=== PATIENT | female | born 1985 | race Caucasian/White ===

== ENCOUNTER 2020-05-26 16:20 | Inpatient (IN) | payer MEDICAID ==
[2020-05-26] MEDS ORDERED: Butorphanol 1 MG/ML SDV IVPUSH PRN (17:24)
[2020-05-26] MEDS ORDERED: Terbutaline 1 MG/ML SDV SUBCUT PRN (17:24)
[2020-05-26] MEDS ORDERED: Sodium Chloride 0.9% 10 ML Syringe FLUSH PRN (17:24)
[2020-05-26] MEDS ORDERED: Ondansetron 4 MG/2 ML SDV IVPUSH PRN (17:24)
[2020-05-26] MEDS ORDERED: Methylergonovine 0.2 MG/1 ML Amp IM PRN (17:24)
[2020-05-26] MEDS ORDERED: Carboprost Tromethamine 250 MCG/1 ML Amp IM PRN (17:24)
[2020-05-26] MEDS ORDERED: Misoprostol 25 MCG (1/4 of 100 MCG) Tab VAG PRN ×2 (17:24)
[2020-05-26] MEDS ORDERED: Sodium Chloride 0.9% 10 ML SDV IV PRN (17:24)
[2020-05-26] MEDS ORDERED: Tranexamic Acid 1,000 MG in Sodium Chloride 0.9% 100 ML IV PRN (17:24)
[2020-05-26] MEDS ORDERED: Sodium Chloride 0.9% 2.5 ML Syringe FLUSH PRN (17:24)
[2020-05-26] MEDS ORDERED: Nalbuphine 10 MG/1 ML Vial IVPUSH PRN (17:24)
[2020-05-26] MEDS ORDERED: Water For Irrigation,Sterile 1,000 ML Container IRR PRN (17:24)
[2020-05-26] MEDS ORDERED: Lidocaine 1% 50 ML MDV INJECT PRN (17:24)
[2020-05-26] MEDS ORDERED: Misoprostol 200 MCG Tab PO PRN (17:24)
[2020-05-26] MEDS ORDERED: Oxytocin/0.9 % Sodium Chloride 30 UNIT/500 ML BAG IV SCH ×3 (17:30→18:45)
[2020-05-26] MEDS: Lactated Ringers 1,000 ML IV SCH ×3 (18:09→22:33)
[2020-05-26] MEDS ORDERED: Ropivacaine HCl/PF 100 ML ONE (22:24)
[2020-05-26] MEDS ORDERED: fentaNYL 100 MCG/2 ML SDV ONE (22:24)
--- NOTE | 2020-05-26 22:45 | PCM.PREANE ---
Preanesthetic Assessment - Anesthesia/Transfusion/Family Hx Anesthesia History: Prior Anesthesia Without Reaction Family History of Anesthesia Reaction: No Transfusion History: No Prior Transfusion(s) - Physical Assessment NPO Status Date: 05/26/20 NPO Status Time: 16:00 Height: 1.63 m Weight: 85.502 kg ASA Class: 2 - Lab Values: Laboratory Last Values WBC 13.67 K/uL (4.0-11.0) H 05/26/20 17:51 RBC 4.76 M/uL (4.30-5.90) 05/26/20 17:51 Hgb 14.3 g/dL (12.0-16.0) 05/26/20 17:51 Hct 42.6 % (36.0-46.0) 05/26/20 17:51 MCV 89.5 fL (80.0-98.0) 05/26/20 17:51 MCH 30.0 pg (27.0-32.0) 05/26/20 17:51 MCHC 33.6 g/dL (31.0-37.0) 05/26/20 17:51 RDW Std Deviation 44.2 fl (28.0-62.0) 05/26/20 17:51 RDW Coeff of Melany 14 % (11.0-15.0) 05/26/20 17:51 Plt Count 237 K/uL (150-400) 05/26/20 17:51 MPV 10.80 fL (7.40-12.00) 05/26/20 17:51 Nucleated RBC % 0.0 /100WBC 05/26/20 17:51 Nucleated RBCs # 0 K/uL 05/26/20 17:51 Membrane Rupture POSITIVE 05/26/20 20:57 Blood Type O POSITIVE 05/26/20 17:51 Antibody Screen NEGATIVE 05/26/20 17:51 - Allergies Allergies/Adverse Reactions: Allergies Allergy/AdvReac Type Severity Reaction Status Date / Time No Known Allergies Allergy Verified 05/25/20 16:23 - Acknowledgements Anesthesia Type Planned: Epidural Pt an Appropriate Candidate for the Planned Anesthesia: Yes Alternatives and Risks of Anesthesia Discussed w Pt/Guardian: Yes Pt/Guardian Understands and Agrees with Anesthesia Plan: Yes PreAnesthesia Questionnaire 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 [No Known Home Meds] 10/21/14 [History] - CURRENT (IN HOUSE) MEDS Current Meds: Current Medications Butorphanol Tartrate (Stadol) 1 mg IVPUSH Q1H PRN PRN Reason: Pain Carboprost Tromethamine (Hemabate Ds) 250 mcg IM ASDIRECTED PRN PRN Reason: Post Hemorrhage Oxytocin/Sodium Chloride (Oxytocin 30 Unit/500 Ml-Ns) 30 unit in 500 mls @ 999 mls/hr IV TITRATE KEVEN Tranexamic Acid 1,000 mg/ (Sodium Chloride) 110 mls @ 660 mls/hr IV ONETIME PRN PRN Reason: Bleeding Lactated Ringer's (Ringers, Lactated) 1,000 mls @ 150 mls/hr IV ASDIRECTED KEVEN Last Admin: 05/26/20 22:33 Dose: 999 mls/hr Documented by: Oxytocin/Sodium Chloride (Oxytocin 30 Unit/500 Ml-Ns) 30 unit in 500 mls @ 2 mls/hr IV TITRATE KEVEN; Protocol Lidocaine HCl (Xylocaine 1%) 50 ml INJECT ONETIME PRN PRN Reason: Laceration repair Methylergonovine Maleate (Methergine) 0.2 mg IM ASDIRECTED PRN PRN Reason: Post Hemorrhage Misoprostol (Cytotec) 200 mcg PO ONETIME PRN PRN Reason: Post Hemorrhage Misoprostol (Cytotec) 25 mcg VAG ONETIME PRN PRN Reason: Cervical Ripening Last Admin: 05/26/20 18:13 Dose: 25 mcg Documented by: Misoprostol (Cytotec) 25 mcg VAG Q4H PRN PRN Reason: Cervical Ripening Nalbuphine HCl (Nubain) 10 mg IVPUSH Q1H PRN PRN Reason: Pain (severe 7-10) Ondansetron HCl (Zofran) 4 mg IVPUSH Q6H PRN PRN Reason: Nausea/Vomiting Sodium Chloride (Saline Flush) 10 ml FLUSH ASDIRECTED PRN PRN Reason: Keep Vein Open Sodium Chloride (Saline Flush) 2.5 ml FLUSH ASDIRECTED PRN PRN Reason: Keep Vein Open Sodium Chloride (Normal Saline) 10 ml IV ASDIRECTED PRN PRN Reason: IV Use Sterile Water (Sterile Water For Irrigation) 1,000 ml IRR ASDIRECTED PRN PRN Reason: delivery Terbutaline Sulfate (Brethine) 0.25 mg SUBCUT ASDIRECTED PRN PRN Reason: Tacysystole Discontinued Medications Fentanyl (Sublimaze) Confirm Administered Dose 100 mcg .ROUTE .STK-MED ONE Stop: 05/26/20 22:25 Ropivacaine (Naropin 0.2%) Confirm Administered Dose 100 mls @ as directed .ROUTE .STK-MED ONE Stop: 05/26/20 22:25
--- NOTE | 2020-05-26 22:48 | PCM.PRNOTE ---
- Free Text/Narrative Note: Anes Note Patient requests epidural for L&D. Sitting position, level L3-L4 midline approach. sterile technique. Chloraprep scrub to lumbar area. Sterile fenestrated drape applied. Epidural space easily achieved single attempt with ease using MARSHALL technique. MARSHALL at 4 cm. Cath threaded 5 cm with ease. Cath secured at skin using sterile clear adhesive dressing. Test 2225 3 cc 1.5% lido with epi negative. 2229 Load 10 cc 0.2% ropivicaine with 1 mcg cc fentanyl in slow divided doses. 2233 Pump started with 90 cc same solution. Rate is 8 cc hr with 6 cc q 20 min prn bolus. Josafat well. Time with patient [id number] Doron Hoyos [employer] INSPECTOR
[2020-05-27] MEDS: Lactated Ringers 1,000 ML IV SCH ×4 (00:24→20:48)
[2020-05-27] MEDS ORDERED: ceFAZolin 2 GM in Premix Bag 1 BAG IV ONE (09:20)
[2020-05-27] MEDS ORDERED: Citric Acid/Sodium Citrate Solution 30 ML Cup PO ONE (09:20)
[2020-05-27] MEDS ORDERED: Lidocaine 2% with EPINEPHrine 1:200,000 20 ML SDV ONE (09:26)
[2020-05-27] MEDS ORDERED: fentaNYL 100 MCG/2 ML SDV ONE (09:27)
[2020-05-27] MEDS ORDERED: Ondansetron 4 MG/2 ML SDV ONE (09:35)
[2020-05-27] MEDS ORDERED: ceFAZolin 1 GM Vial ONE (09:35)
[2020-05-27] MEDS ORDERED: Phenylephrine 1% 10 MG/ML SDV ONE (09:35)
[2020-05-27] MEDS ORDERED: Sodium Chloride 0.9% 20 ML ONE (09:35)
[2020-05-27] MEDS ORDERED: Ketorolac 30 MG/ML SDV ONE (09:35)
[2020-05-27] MEDS ORDERED: Oxytocin 10 Units/1 ML SDV ONE (09:35)
[2020-05-27] MEDS ORDERED: Morphine PF 10 MG/10 ML SDV ONE (09:57)
[2020-05-27] MEDS ORDERED: Ondansetron 4 MG/2 ML SDV IVPUSH PRN ×2 (10:10→11:16)
[2020-05-27] MEDS ORDERED: Naloxone 0.4 MG/ML Syringe IVPUSH PRN (10:10)
[2020-05-27] MEDS ORDERED: Acetaminophen/oxyCODONE 325-5 MG Tab PO PRN ×2 (10:10→11:16)
[2020-05-27] MEDS ORDERED: Nalbuphine 10 MG/1 ML Vial IVPUSH PRN (10:10)
[2020-05-27] MEDS ORDERED: fentaNYL 100 MCG/2 ML SDV IVPUSH PRN (10:10)
[2020-05-27] MEDS ORDERED: diphenhydrAMINE 50 MG/ML SDV IVPUSH PRN ×2 (10:10→11:16)
[2020-05-27] MEDS ORDERED: Lanolin 100% Cream 7 GM Tube TOP PRN (11:16)
[2020-05-27] MEDS ORDERED: Measles, Mumps & Rubella Vaccine 0.5 ML SDV SUBCUT ONE (11:16)
[2020-05-27] MEDS ORDERED: Methylergonovine 0.2 MG/1 ML Amp IM PRN (11:16)
[2020-05-27] MEDS ORDERED: Tranexamic Acid 1,000 MG in Sodium Chloride 0.9% 100 ML IV PRN (11:16)
[2020-05-27] MEDS ORDERED: Misoprostol 200 MCG Tab RECTAL PRN (11:16)
[2020-05-27] MEDS ORDERED: Bisacodyl 10 MG Supp RECTAL PRN (11:16)
[2020-05-27] MEDS ORDERED: Oxytocin 10 Units/1 ML SDV IM PRN (11:16)
--- NOTE | 2020-05-27 11:28 | PCM.OPNOTE ---
- General Post-Op/Procedure Note Date of Surgery/Procedure: 05/27/20 Operative Procedure(s): Primary lower segment cesearean section Findings: Live male delivered at 1005am , weight 3210g 8/8 Uterus with small subserous fibroid Normal tubes and ovaries Pre Op Diagnosis: 34yo @ 40w0d with. Arrest of Descent. Maternal exhaustion Post-Op Diagnosis: same Anesthesia Technique: Epidural Primary Surgeon: Kaylah Boston Anesthesia Provider: Doron Hoyos Fluid Replacement, Intraop: 1,600 Output, Urine Amount: 50 EBL in mLs: 400 Complications: None Condition: Good Free Text/Narrative:: Intake & Output 05/26/20 05/27/20 05/27/20 22:59 06:59 14:59 Output Total 50 Balance -50
[2020-05-27] MEDS ORDERED: Ketorolac 30 MG/ML SDV IVPUSH SCH (11:30)
[2020-05-27] MEDS ORDERED: Oxytocin/Lactated Ringers 30 UNIT/500 ML BAG IV SCH (11:30)
--- NOTE | 2020-05-27 11:42 | PCM.POSTAN ---
POST ANESTHESIA ASSESSMENT - MENTAL STATUS Mental Status: Alert - RESPIRATORY Respiratory Status: Respiratory Rate WNL - CARDIOVASCULAR CV Status: Pulse Rate WNL - GASTROINTESTINAL GI Status: No Symptoms - POST OP HYDRATION Hydration Status: Adequate & Stable
[2020-05-27] MEDS ORDERED: Witch Hazel Medicated Pads 40/Jar TOP ONE (16:53)
[2020-05-27] MEDS: Ketorolac 30 MG/ML SDV IVPUSH SCH ×2 (16:58→22:49)
[2020-05-27] MEDS: Docusate Sodium 100 MG Cap PO SCH (20:51)
[2020-05-28] MEDS: Ketorolac 30 MG/ML SDV IVPUSH SCH ×2 (05:01→10:48)
--- NOTE | 2020-05-28 06:03 | PCM.PNPP ---
- General Info Date of Service: 05/28/20 Subjective Update: 34yo P1 s/p Primary POD1 , Rubella non - immune for MMR before discharge Ambulating [place] in - Normal hourly output Functional Status: Reports: Pain Controlled, Tolerating Diet, Ambulating, Urinating - Review of Systems General: Reports: No Symptoms HEENT: Reports: No Symptoms Pulmonary: Reports: No Symptoms Cardiovascular: Reports: No Symptoms Gastrointestinal: Reports: No Symptoms Genitourinary: Reports: No Symptoms Musculoskeletal: Reports: No Symptoms Skin: Reports: No Symptoms Neurological: Reports: No Symptoms Psychiatric: Reports: No Symptoms - General Info Date of Service: 05/28/20 - Patient Data Vital Signs - Most Recent: Last Vital Signs Temp 35.8 C L 05/27/20 20:00 Pulse 87 05/27/20 23:00 Resp 17 05/27/20 23:00 BP 106/51 L 05/27/20 20:00 Pulse Ox 97 05/27/20 23:00 Weight - Most Recent: 85.502 kg I&O - Last 24 Hours: Intake & Output 05/27/20 05/27/20 05/28/20 14:59 22:59 06:59 Intake Total 1600 Output Total 235 200 Balance 1365 -200 Lab Results - Last 24 Hours: Laboratory Results - last 24 hr 05/27/20 05/28/20 Range/Units 10:05 05:05 Hgb 10.4 L (12.0-16.0) g/dL Hct 31.0 L (36.0-46.0) % Cord VBG pH 7.240 L (7.25-7.45) Cord VBG Base Excess -8 (-10--2) Med Orders - Current: Current Medications Bisacodyl (Dulcolax) 10 mg RECTAL ONETIME PRN PRN Reason: Constipation Butorphanol Tartrate (Stadol) 1 mg IVPUSH Q1H PRN PRN Reason: Pain Carboprost Tromethamine (Hemabate Ds) 250 mcg IM ASDIRECTED PRN PRN Reason: Post Hemorrhage Diphenhydramine HCl (Benadryl) 25 mg IVPUSH Q4H PRN PRN Reason: Itching Stop: 05/28/20 10:10 Diphenhydramine HCl (Benadryl) 25 mg IVPUSH Q6H PRN PRN Reason: Itching or Nausea Docusate Sodium (Colace) 100 mg PO BID [facility] Last Admin: 05/27/20 20:51 Dose: 100 mg Documented by: Emollient Ointment (Lansinoh Hpa) 0 gm TOP ASDIRECTED PRN PRN Reason: Sore Nipples Fentanyl (Sublimaze) 50 mcg IVPUSH Q1H PRN PRN Reason: Pain (severe 7-10) Oxytocin/Sodium Chloride (Oxytocin 30 Unit/500 Ml-Ns) 30 unit in 500 mls @ 999 mls/hr IV TITRATE [facility] Tranexamic Acid 1,000 mg/ (Sodium Chloride) 110 mls @ 660 mls/hr IV ONETIME PRN PRN Reason: Bleeding Lactated Ringer's (Ringers, Lactated) 1,000 mls @ 150 mls/hr IV ASDIRECTED [facility] Last Admin: 05/27/20 07:01 Dose: 150 mls/hr Documented by: Oxytocin/Sodium Chloride (Oxytocin 30 Unit/500 Ml-Ns) 30 unit in 500 mls @ 2 mls/hr IV TITRATE [facility]; Protocol Last Infusion: 05/27/20 06:35 Dose: 7 munits/min, 7 mls/hr Documented by: Lactated Ringer's (Ringers, Lactated) 1,000 mls @ 125 mls/hr IV ASDIRECTED [facility] Last Admin: 05/27/20 20:48 Dose: 125 mls/hr Documented by: Oxytocin/Lactated Ringer's (Pitocin In Lr 30 Units/500 Ml) 30 unit in 500 mls @ 2 mls/hr IV TITRATE [facility]; Protocol Tranexamic Acid 1,000 mg/ (Sodium Chloride) 110 mls @ 660 mls/hr IV ONETIME PRN PRN Reason: Bleeding Ibuprofen (Motrin) 800 mg PO Q8H PRN PRN Reason: mild pain or fever Ketorolac Tromethamine (Toradol) 30 mg IVPUSH Q6H [facility] Stop: 05/28/20 10:46 Last Admin: 05/28/20 05:01 Dose: 30 mg Documented by: Lidocaine HCl (Xylocaine 1%) 50 ml INJECT ONETIME PRN PRN Reason: Laceration repair Methylergonovine Maleate (Methergine) 0.2 mg IM ASDIRECTED PRN PRN Reason: Post Hemorrhage Methylergonovine Maleate (Methergine) 0.2 mg IM ONETIME PRN PRN Reason: Excessive Vaginal Bleeding Misoprostol (Cytotec) 200 mcg PO ONETIME PRN PRN Reason: Post Hemorrhage Misoprostol (Cytotec) 1,000 mcg RECTAL ONETIME PRN PRN Reason: excessive bleeding Naloxone HCl (Narcan) 0.1 mg IVPUSH ONETIME PRN PRN Reason: Respiratory Depression Stop: 05/28/20 10:10 Ondansetron HCl (Zofran) 4 mg IVPUSH Q6H PRN PRN Reason: Nausea/Vomiting Ondansetron HCl (Zofran) 4 mg IVPUSH Q6H PRN PRN Reason: Nausea Ondansetron HCl (Zofran) 4 mg IVPUSH Q4H PRN PRN Reason: Nausea/Vomiting Oxycodone/Acetaminophen (Percocet 325-5 Mg) 2 tab PO Q6H PRN PRN Reason: Pain (moderate 4-6) Oxycodone/Acetaminophen (Percocet 325-5 Mg) 1 tab PO Q4H PRN PRN Reason: Pain (moderate 4-6) Oxycodone/Acetaminophen (Percocet 325-5 Mg) 2 tab PO Q4H PRN PRN Reason: Pain (moderate 4-6) Oxytocin (Pitocin) 10 unit IM ASDIRECTED PRN PRN Reason: Excessive Vaginal Bleeding Sodium Chloride (Saline Flush) 10 ml FLUSH ASDIRECTED PRN PRN Reason: Keep Vein Open Sodium Chloride (Saline Flush) 2.5 ml FLUSH ASDIRECTED PRN PRN Reason: Keep Vein Open Sodium Chloride (Normal Saline) 10 ml IV ASDIRECTED PRN PRN Reason: IV Use Sterile Water (Sterile Water For Irrigation) 1,000 ml IRR ASDIRECTED PRN PRN Reason: delivery Discontinued Medications Cefazolin Sodium (Ancef) Confirm Administered Dose 2 gm .ROUTE .STK-MED ONE Stop: 05/27/20 09:36 Citric Acid/Sodium Citrate (Bicitra Solution) 30 ml PO ONETIME ONE Stop: 05/27/20 09:21 Last Admin: 05/27/20 09:35 Dose: 15 ml Documented by: Fentanyl (Sublimaze) Confirm Administered Dose 100 mcg .ROUTE .STK-MED ONE Stop: 05/26/20 22:25 Last Admin: 05/27/20 22:14 Dose: Not Given Documented by: Fentanyl (Sublimaze) Confirm Administered Dose 100 mcg .ROUTE .STK-MED ONE Stop: 05/27/20 09:28 Ropivacaine (Naropin 0.2%) Confirm Administered Dose 100 mls @ as directed .ROUTE .STK-MED ONE Stop: 05/26/20 22:25 Last Admin: 05/27/20 22:14 Dose: Not Given Documented by: Cefazolin Sodium/Dextrose 2 gm (/ Premix) 50 mls @ 100 mls/hr IV ONETIME ONE Stop: 05/27/20 09:49 Sodium Chloride (Normal Saline) Confirm Administered Dose 20 mls @ as directed .ROUTE .STK-MED ONE Stop: 05/27/20 09:36 Ketorolac Tromethamine (Toradol) Confirm Administered Dose 30 mg .ROUTE .STK-MED ONE Stop: 05/27/20 09:36 Ketorolac Tromethamine (Toradol) 30 mg IVPUSH Q6H KEVEN Stop: 05/28/20 11:31 Lidocaine/Epinephrine (Xylocaine-Mpf 2%-Epi 1:200,000) Confirm Administered Dose 20 ml .ROUTE .STK-MED ONE Stop: 05/27/20 09:27 Last Admin: 05/27/20 22:14 Dose: Not Given Documented by: Measles/Mumps/Rubella Vaccine Live (M-M-R Ii Vaccine) 0.5 ml SUBCUT .ONCE ONE Stop: 05/27/20 11:17 Misoprostol (Cytotec) 25 mcg VAG ONETIME PRN PRN Reason: Cervical Ripening Last Admin: 05/26/20 18:13 Dose: 25 mcg Documented by: Misoprostol (Cytotec) 25 mcg VAG Q4H PRN PRN Reason: Cervical Ripening Morphine Sulfate (Duramorph Pf) Confirm Administered Dose 10 mg .ROUTE .STK-MED ONE Stop: 05/27/20 09:58 Nalbuphine HCl (Nubain) 10 mg IVPUSH Q1H PRN PRN Reason: Pain (severe 7-10) Nalbuphine HCl (Nubain) 5 mg IVPUSH ASDIRECTED PRN PRN Reason: Itching Ondansetron HCl (Zofran) Confirm Administered Dose 4 mg .ROUTE .STK-MED ONE Stop: 05/27/20 09:36 Oxytocin (Pitocin) Confirm Administered Dose 20 unit .ROUTE .STK-MED ONE Stop: 05/27/20 09:36 Phenylephrine HCl (Ravindra-Synephrine) Confirm Administered Dose 10 mg .ROUTE .STK- MED ONE Stop: 05/27/20 09:36 Terbutaline Sulfate (Brethine) 0.25 mg SUBCUT ASDIRECTED PRN PRN Reason: Tacysystole [place] (Tucks) Confirm Administered Dose 1 pad TOP .STK-MED ONE Stop: 05/27/20 16:54 Last Admin: 05/27/20 17:31 Dose: 1 pad Documented by: - Interaction Support Person: Significant Other - Recovery Exam Fundal Tone: Firm Fundal Level: 1 Fingerbreadths Below Umbilicus Fundal Placement: Midline Lochia Amount: Scant, Small Lochia Color: Rubra/Red Perineum Description: Intact, Minimal Bruising/Swelling Other Perinuem Description: Perineal area swollen due to pushing for 2 hours before C/S Episiotomy/Laceration: None Bladder Status: Indwelling Catheter in Place Urinary Elimination: Indwelling Catheter - Exam General: Alert HEENT: Pupils Equal Neck: Supple Lungs: Clear to Auscultation Cardiovascular: Regular Rate, Regular Rhythm GI/Abdominal Exam: Normal Bowel Sounds Extremities: Normal Inspection Wound/Incisions: Dressing Dry and Intact Neurological: No New Focal Deficit Psy/Mental Status: Alert - Problem List & Annotations (1) delivery delivered SNOMED Code(s): 520040236 Code(s): O82 - ENCOUNTER FOR DELIVERY WITHOUT INDICATION Status: Acute Current Visit: Yes - Problem List Review Problem List Initiated/Reviewed/Updated: Yes - My Orders Last 24 Hours: My Active Orders 05/27/20 11:16 Patient Status [ADT] Routine Ambulate [RC] PER UNIT ROUTINE Communication Order [RC] PER UNIT ROUTINE Communication Order [RC] PER UNIT ROUTINE Communication Order [RC] Per Unit Routine May Shower [RC] ASDIRECTED Notify Provider Intake and Out [RC] ASDIRECTED Notify Provider Vital Signs [RC] ASDIRECTED RT Incentive Spirometry [RC] Q2HWA Vital Signs [RC] PER UNIT ROUTINE Acetaminophen/oxyCODONE [Percocet 325-5 MG] 1 tab PO Q4H PRN Acetaminophen/oxyCODONE [Percocet 325-5 MG] 2 tab PO Q4H PRN Lanolin [Lansinoh HPA] See Dose Instructions TOP ASDIRECTED PRN Methylergonovine [Methergine] 0.2 mg IM ONETIME PRN Ondansetron [Zofran] 4 mg IVPUSH Q4H PRN Oxytocin [Pitocin] 10 unit IM ASDIRECTED PRN Tranexamic Acid [Cyklokapron] 1,000 mg Sodium Chloride 0.9% [Normal Saline] 100 ml IV ONETIME bisacodyL [Dulcolax] 10 mg RECTAL ONETIME PRN diphenhydrAMINE [Benadryl] 25 mg IVPUSH Q6H PRN miSOPROStoL [Cytotec] 1,000 mcg RECTAL ONETIME PRN Assess Lochia [WOMSER] Per Unit Routine Assess Uterine Involution [WOMSER] Per Unit Routine Breast Pump [WOMSER] Per Unit Routine Peripheral IV Discontinue [OM.PC] Routine Sequential Compression Device [OM.PC] Per Unit Routine Resuscitation Status Routine 05/27/20 11:17 Antiembolic Devices [RC] PER UNIT ROUTINE 05/27/20 11:30 Lactated Ringers [Ringers, Lactated] 1,000 ml IV ASDIRECTED Oxytocin/Lactated Ringers [Pitocin in LR 30 Units/500 ML] 30 unit in 500 ml IV TITRATE 05/27/20 16:45 Ketorolac [Toradol] 30 mg IVPUSH Q6H 05/27/20 21:00 Docusate Sodium [Colace] 100 mg PO BID 05/28/20 17:30 Ibuprofen [Motrin] 800 mg PO Q8H PRN - Assessment Assessment:: 34yo P1 s/p Primary POD1 , Rubella non - immune for MMR before discharge Ambulating [place] in - Normal hourly output - Plan Plan:: Regular diet Incentive spirometry Pain control as needed Venodynes MMR before discharge Possible discharge tomorrow
[2020-05-28] MEDS: Docusate Sodium 100 MG Cap PO SCH ×2 (08:08→20:46)
--- NOTE | 2020-05-28 08:59 | OR ---
SURGEON: LUCRECIA MORAN DATE OF PROCEDURE: 05/27/2020 PREOPERATIVE DIAGNOSES: A 34-year-old G2, P0-0-1-0, at 40 weeks 0 days with arrest of decent, history of gastric bypass, rubella nonimmune. POSTOPERATIVE DIAGNOSES: A 34-year-old G2, P0-0-1-0, at 40 weeks 0 days with arrest of decent, history of gastric bypass, rubella nonimmune. PROCEDURE: Primary lower segment section. ESTIMATED BLOOD LOSS: 600. IV FLUIDS: 1600. URINE OUTPUT: 400. ANESTHESIA: Epidural. COMPLICATION: None. NOTES AND FINDING: A live delivered at 1005. score 8 and 9, weight is 3210 g. BRIEF HISTORY: She is a G2, P0-0-1-0 at 40 weeks 0 days, who came in for elective induction of labor. When she came in, she received Cytotec and the membranes ruptured spontaneously on its own. Then she made change. Pitocin was started and then she became fully dilated. When she became fully dilated, it was noted she had some late deceleration, so the Pitocin was stopped. Then attempt was made to push with the patient. The patient pushed for 21/2 hours and she was fully dilated for about 3 hours with no descent past the [address] point, patient said she was exhausted and also she would like to go ahead with a primary section. She was informed the risks, benefits, and alternatives and she decided to proceed. DESCRIPTION OF PROCEDURE: The patient was taken to the operating room, where the epidural anesthesia was topped off. She was prepared and draped in the dorsal supine position with a leftward tilt. Pfannenstiel skin incision was made with the scalpel and carried down to the fascia with the Bovie. The fascia was incised and extended upwards and laterally. Then, the rectus muscle was noted, which was in the midline all the way to the level of the pubic symphysis. Then the peritoneum was entered without any difficulty. Then the Moisés retractor was placed in. The lower uterine incision was then made after a bladder flap was created and the was noted to be in OP position. The was brought to the level of the incision. With fundal pressure the infant was delivered without any difficulty. Then the cord was clamped and cut. Delayed cord clamping was observed. The placenta was delivered by manual massage of the uterine fundus. After delivery of the placenta, the uterus was cleaned with moist laparotomy sponges. The incision was closed in 2 layers, first layer with 0 Vicryl, second layer with 0 Monocryl. Then the incision was inspected, noted to be hemostatic. The Moisés retractor was removed and the peritoneum was closed with 2-0 Vicryl and the fascia was closed with 0 Vicryl in a continuous fashion. The subcutaneous fat was closed with plain gut. The skin was closed with 3-0 Monocryl on a Tj needle. All instruments and pad counts were correct x2, and the patient tolerated the procedure, and a live male was delivered. KASSIE AHRTMAN /[id number] MTDD
--- NOTE | 2020-05-28 13:01 | PCM48HPAN ---
Post Anesthesia Note - EVALUATION WITHIN 48HRS OF ANESTHETIC Vital Signs in Normal Range: Yes Patient Participated in Evaluation: Yes Respiratory Function Stable: Yes Airway Patent: Yes Cardiovascular Function Stable: Yes Hydration Status Stable: Yes Pain Control Satisfactory: Yes Nausea and Vomiting Control Satisfactory: Yes Mental Status Recovered: Yes Vital Signs: Last Vital Signs Temp 36.8 C 05/28/20 11:00 Pulse 94 05/28/20 11:00 Resp 18 05/28/20 11:00 BP 118/63 05/28/20 11:00 Pulse Ox 95 05/28/20 11:00 - COMMENTS/OBSERVATIONS Free Text/Narrative:: Denies any problems or discomforts
[2020-05-28] MEDS: Acetaminophen/oxyCODONE 325-5 MG Tab PO PRN ×2 (13:56→21:07)
[2020-05-28] MEDS: Ibuprofen 800 MG Tab PO PRN (17:49)
[2020-05-29] MEDS: Ibuprofen 800 MG Tab PO PRN (03:11)
[2020-05-29 08:22] VITALS: BP 114/64; PULSE 72
[2020-05-29] MEDS: Acetaminophen/oxyCODONE 325-5 MG Tab PO PRN (08:53)
[2020-05-29] MEDS: Docusate Sodium 100 MG Cap PO SCH (08:54)
--- NOTE | 2020-05-29 10:23 | PCM.PNPP ---
- General Info Date of Service: 05/29/20 Subjective Update: 34yo P1 s/p Primary POD2 , Rubella non - immune for MMR before discharge Ambulating Voiding Functional Status: Reports: Pain Controlled, Tolerating Diet, Ambulating, Urinating - Review of Systems General: Reports: No Symptoms HEENT: Reports: No Symptoms Pulmonary: Reports: No Symptoms Cardiovascular: Reports: No Symptoms Gastrointestinal: Reports: No Symptoms Genitourinary: Reports: No Symptoms Musculoskeletal: Reports: No Symptoms Skin: Reports: No Symptoms Neurological: Reports: No Symptoms Psychiatric: Reports: No Symptoms - General Info Date of Service: 05/29/20 - Patient Data Vital Signs - Most Recent: Last Vital Signs Temp 36.6 C 05/29/20 08:21 Pulse 72 05/29/20 08:21 Resp 18 05/29/20 08:21 BP 114/64 05/29/20 08:21 Pulse Ox 97 05/29/20 08:21 Weight - Most Recent: 85.502 kg Med Orders - Current: Current Medications Bisacodyl (Dulcolax) 10 mg RECTAL ONETIME PRN PRN Reason: Constipation Butorphanol Tartrate (Stadol) 1 mg IVPUSH Q1H PRN PRN Reason: Pain Carboprost Tromethamine (Hemabate Ds) 250 mcg IM ASDIRECTED PRN PRN Reason: Post Hemorrhage Diphenhydramine HCl (Benadryl) 25 mg IVPUSH Q6H PRN PRN Reason: Itching or Nausea Docusate Sodium (Colace) 100 mg PO BID [facility] Last Admin: 05/29/20 08:54 Dose: 100 mg Documented by: Emollient Ointment (Lansinoh Hpa) 0 gm TOP ASDIRECTED PRN PRN Reason: Sore Nipples Fentanyl (Sublimaze) 50 mcg IVPUSH Q1H PRN PRN Reason: Pain (severe 7-10) Oxytocin/Sodium Chloride (Oxytocin 30 Unit/500 Ml-Ns) 30 unit in 500 mls @ 999 mls/hr IV TITRATE [facility] Tranexamic Acid 1,000 mg/ (Sodium Chloride) 110 mls @ 660 mls/hr IV ONETIME PRN PRN Reason: Bleeding Lactated Ringer's (Ringers, Lactated) 1,000 mls @ 150 mls/hr IV ASDIRECTED [facility] Last Admin: 05/27/20 07:01 Dose: 150 mls/hr Documented by: Oxytocin/Sodium Chloride (Oxytocin 30 Unit/500 Ml-Ns) 30 unit in 500 mls @ 2 mls/hr IV TITRATE [facility]; Protocol Last Infusion: 05/27/20 06:35 Dose: 7 munits/min, 7 mls/hr Documented by: Lactated Ringer's (Ringers, Lactated) 1,000 mls @ 125 mls/hr IV ASDIRECTED [facility] Last Admin: 05/27/20 20:48 Dose: 125 mls/hr Documented by: Oxytocin/Lactated Ringer's (Pitocin In Lr 30 Units/500 Ml) 30 unit in 500 mls @ 2 mls/hr IV TITRATE [facility]; Protocol Tranexamic Acid 1,000 mg/ (Sodium Chloride) 110 mls @ 660 mls/hr IV ONETIME PRN PRN Reason: Bleeding Ibuprofen (Motrin) 800 mg PO Q8H PRN PRN Reason: mild pain or fever Last Admin: 05/29/20 03:11 Dose: 800 mg Documented by: Lidocaine HCl (Xylocaine 1%) 50 ml INJECT ONETIME PRN PRN Reason: Laceration repair Methylergonovine Maleate (Methergine) 0.2 mg IM ASDIRECTED PRN PRN Reason: Post Hemorrhage Methylergonovine Maleate (Methergine) 0.2 mg IM ONETIME PRN PRN Reason: Excessive Vaginal Bleeding Misoprostol (Cytotec) 200 mcg PO ONETIME PRN PRN Reason: Post Hemorrhage Misoprostol (Cytotec) 1,000 mcg RECTAL ONETIME PRN PRN Reason: excessive bleeding Ondansetron HCl (Zofran) 4 mg IVPUSH Q6H PRN PRN Reason: Nausea/Vomiting Ondansetron HCl (Zofran) 4 mg IVPUSH Q6H PRN PRN Reason: Nausea Ondansetron HCl (Zofran) 4 mg IVPUSH Q4H PRN PRN Reason: Nausea/Vomiting Oxycodone/Acetaminophen (Percocet 325-5 Mg) 2 tab PO Q6H PRN PRN Reason: Pain (moderate 4-6) Oxycodone/Acetaminophen (Percocet 325-5 Mg) 1 tab PO Q4H PRN PRN Reason: Pain (moderate 4-6) Last Admin: 05/29/20 08:53 Dose: 1 tab Documented by: Oxycodone/Acetaminophen (Percocet 325-5 Mg) 2 tab PO Q4H PRN PRN Reason: Pain (moderate 4-6) Oxytocin (Pitocin) 10 unit IM ASDIRECTED PRN PRN Reason: Excessive Vaginal Bleeding Sodium Chloride (Saline Flush) 10 ml FLUSH ASDIRECTED PRN PRN Reason: Keep Vein Open Sodium Chloride (Saline Flush) 2.5 ml FLUSH ASDIRECTED PRN PRN Reason: Keep Vein Open Sodium Chloride (Normal Saline) 10 ml IV ASDIRECTED PRN PRN Reason: IV Use Sterile Water (Sterile Water For Irrigation) 1,000 ml IRR ASDIRECTED PRN PRN Reason: delivery Discontinued Medications Cefazolin Sodium (Ancef) Confirm Administered Dose 2 gm .ROUTE .STK-MED ONE Stop: 05/27/20 09:36 Citric Acid/Sodium Citrate (Bicitra Solution) 30 ml PO ONETIME ONE Stop: 05/27/20 09:21 Last Admin: 05/27/20 09:35 Dose: 15 ml Documented by: Diphenhydramine HCl (Benadryl) 25 mg IVPUSH Q4H PRN PRN Reason: Itching Stop: 05/28/20 10:10 Fentanyl (Sublimaze) Confirm Administered Dose 100 mcg .ROUTE .STK-MED ONE Stop: 05/26/20 22:25 Last Admin: 05/27/20 22:14 Dose: Not Given Documented by: Fentanyl (Sublimaze) Confirm Administered Dose 100 mcg .ROUTE .STK-MED ONE Stop: 05/27/20 09:28 Ropivacaine (Naropin 0.2%) Confirm Administered Dose 100 mls @ as directed .ROUTE .STK-MED ONE Stop: 05/26/20 22:25 Last Admin: 05/27/20 22:14 Dose: Not Given Documented by: Cefazolin Sodium/Dextrose 2 gm (/ Premix) 50 mls @ 100 mls/hr IV ONETIME ONE Stop: 05/27/20 09:49 Sodium Chloride (Normal Saline) Confirm Administered Dose 20 mls @ as directed .ROUTE .STK-MED ONE Stop: 05/27/20 09:36 Ketorolac Tromethamine (Toradol) Confirm Administered Dose 30 mg .ROUTE .STK-MED ONE Stop: 05/27/20 09:36 Ketorolac Tromethamine (Toradol) 30 mg IVPUSH Q6H [facility] Stop: 05/28/20 11:31 Ketorolac Tromethamine (Toradol) 30 mg IVPUSH Q6H [facility] Stop: 05/28/20 10:46 Last Admin: 05/28/20 10:48 Dose: 30 mg Documented by: Lidocaine/Epinephrine (Xylocaine-Mpf 2%-Epi 1:200,000) Confirm Administered Dose 20 ml .ROUTE .STK-MED ONE Stop: 05/27/20 09:27 Last Admin: 05/27/20 22:14 Dose: Not Given Documented by: Measles/Mumps/Rubella Vaccine Live (M-M-R Ii Vaccine) 0.5 ml SUBCUT .ONCE ONE Stop: 05/27/20 11:17 Misoprostol (Cytotec) 25 mcg VAG ONETIME PRN PRN Reason: Cervical Ripening Last Admin: 05/26/20 18:13 Dose: 25 mcg Documented by: Misoprostol (Cytotec) 25 mcg VAG Q4H PRN PRN Reason: Cervical Ripening Morphine Sulfate (Duramorph Pf) Confirm Administered Dose 10 mg .ROUTE .STK-MED ONE Stop: 05/27/20 09:58 Nalbuphine HCl (Nubain) 10 mg IVPUSH Q1H PRN PRN Reason: Pain (severe 7-10) Nalbuphine HCl (Nubain) 5 mg IVPUSH ASDIRECTED PRN PRN Reason: Itching Naloxone HCl (Narcan) 0.1 mg IVPUSH ONETIME PRN PRN Reason: Respiratory Depression Stop: 05/28/20 10:10 Ondansetron HCl (Zofran) Confirm Administered Dose 4 mg .ROUTE .STK-MED ONE Stop: 05/27/20 09:36 Oxytocin (Pitocin) Confirm Administered Dose 20 unit .ROUTE .STK-MED ONE Stop: 05/27/20 09:36 Phenylephrine HCl (Ravindra-Synephrine) Confirm Administered Dose 10 mg .ROUTE .STK- MED ONE Stop: 05/27/20 09:36 Terbutaline Sulfate (Brethine) 0.25 mg SUBCUT ASDIRECTED PRN PRN Reason: Tacysystole Witfran Rocío (Tucks) Confirm Administered Dose 1 pad TOP .STK-MED ONE Stop: 05/27/20 16:54 Last Admin: 05/27/20 17:31 Dose: 1 pad Documented by: - Infant Interaction Support Person: Significant Other - Recovery Exam Fundal Tone: Firm Fundal Level: 1 Fingerbreadths Below Umbilicus Fundal Placement: Midline Lochia Amount: Small Lochia Color: Rubra/Red Perineum Description: Intact, Minimal Bruising/Swelling Other Perinuem Description: Perineal area swollen due to pushing for 2 hours before C/S Episiotomy/Laceration: None Bladder Status: Voiding Urinary Elimination: Voided - Exam General: Alert HEENT: Pupils Equal Neck: Supple Lungs: Clear to Auscultation Cardiovascular: Regular Rate, Regular Rhythm GI/Abdominal Exam: Normal Bowel Sounds Extremities: Normal Inspection Wound/Incisions: Dressing Dry and Intact Neurological: No New Focal Deficit Psy/Mental Status: Alert - Problem List & Annotations (1) delivery delivered SNOMED Code(s): 400302798 Code(s): O82 - ENCOUNTER FOR DELIVERY WITHOUT INDICATION Status: Acute Current Visit: Yes - Problem List Review Problem List Initiated/Reviewed/Updated: Yes - My Orders Last 24 Hours: My Active Orders 05/28/20 17:30 Ibuprofen [Motrin] 800 mg PO Q8H PRN - Assessment Assessment:: 34yo P1 s/p Primary POD2 , Rubella non - immune for MMR before discharge Ambulating Voiding - Plan Plan:: Regular diet Incentive spirometry Pain control as needed Venodynes MMR before discharge Discharge today
[2020-05-29] MEDS ORDERED: Measles, Mumps & Rubella Vaccine 0.5 ML SDV SUBCUT ONE (11:41)
== END 2020-05-29 12:16 | disposition home or self-care (01) | DRG 788 ==
LOC: MW.OBCHECK 16:20 → MW.OB 16:20 → MW.OBCHECK 17:05 → MW.OB 17:05 → OBSVTOIN 05-27 11:16 → MW.OB 05-27 16:11
PROVIDERS: ADMIT Obstetrics & Gynecology; ATTEND Obstetrics & Gynecology
PROC: 10D00Z1 Extraction of Products of Conception, Low, Open Approach (ICD-10-PCS; principal; 2020-05-27)
PROC: 4A1HXCZ Monitoring of Products of Conception, Cardiac Rate, External Approach (ICD-10-PCS; 2020-05-27)
DX: O48.0 Post-term pregnancy (principal); O99.02 Anemia complicating childbirth; D64.9 Anemia, unspecified; Z37.0 Single live birth; Z3A.40 40 weeks gestation of pregnancy; O76 Abnormality in fetal heart rate and rhythm complicating labor and delivery; O62.2 Other uterine inertia; O99.214 Obesity complicating childbirth; E66.9 Obesity, unspecified; O99.334 Smoking (tobacco) complicating childbirth; F17.210 Nicotine dependence, cigarettes, uncomplicated; O34.13 Maternal care for benign tumor of corpus uteri, third trimester; D25.2 Subserosal leiomyoma of uterus; Z95.1 Presence of aortocoronary bypass graft
CPT/HCPCS: 36415; 59025; 82803; 84112; 85014; 85018; 85027; 86592; 86850; 86900; 86901; 90471; 90707; A9270-GY; J0690; J1885; J2270; J2370; J2405; J2590; J2795; J3010; J7120

== ENCOUNTER 2022-08-12 05:01 | Inpatient (IN) | payer BC, OTHER ==
[2022-08-12] MEDS ORDERED: Citric Acid/Sodium Citrate Solution 30 ML Cup PO ONE (05:20)
[2022-08-12] MEDS ORDERED: Sodium Chloride 0.9% 2.5 ML Syringe FLUSH PRN (05:20)
[2022-08-12] MEDS ORDERED: Sodium Chloride 0.9% 10 ML Syringe FLUSH PRN (05:20)
[2022-08-12] MEDS ORDERED: Sodium Chloride 0.9% 20 ML SDV IV PRN (05:20)
[2022-08-12] MEDS ORDERED: Oxytocin/0.9 % Sodium Chloride 30 UNIT/500 ML BAG IV SCH (05:30)
[2022-08-12] MEDS: Lactated Ringers 1,000 ML IV SCH ×2 (05:36→06:18)
[2022-08-12] MEDS ORDERED: ceFAZolin 2 GM in Premix Bag 1 BAG IV ONE (07:01)
[2022-08-12] MEDS ORDERED: Ropivacaine 0.5% 5 MG/ML 30 ML SDV ONE (07:13)
[2022-08-12] MEDS ORDERED: Dexamethasone 4 MG/ML 5 ML MDV ONE (07:13)
[2022-08-12] MEDS ORDERED: Lidocaine 2% 5 ML SDV ONE (07:13)
[2022-08-12] MEDS ORDERED: ceFAZolin 1 GM Vial ONE (07:13)
[2022-08-12] MEDS ORDERED: Dexmedetomidine 200 MCG/2 ML SDV ONE (07:13)
[2022-08-12] MEDS ORDERED: Oxytocin 10 Units/1 ML SDV ONE (07:13)
[2022-08-12] MEDS ORDERED: Ondansetron 4 MG/2 ML SDV ONE (07:13)
[2022-08-12] MEDS ORDERED: Morphine PF 10 MG/10 ML SDV ONE (07:14)
[2022-08-12] MEDS ORDERED: Water For Injection, Sterile 20 ML ONE (07:31)
[2022-08-12] MEDS ORDERED: Ketorolac 30 MG/ML SDV ONE (07:35)
[2022-08-12] MEDS ORDERED: ePHEDrine 50 MG/ML SDV ONE (07:57)
[2022-08-12] MEDS ORDERED: Phenylephrine 1% 10 MG/ML SDV ONE (07:59)
[2022-08-12] MEDS ORDERED: Glycopyrrolate 0.2 MG/ML SDV ONE (07:59)
[2022-08-12] MEDS ORDERED: Metoclopramide 10 MG/2 ML SDV IVPUSH PRN (08:16)
[2022-08-12] MEDS ORDERED: Morphine 2 MG/ML SYRINGE IVPUSH PRN (08:16)
[2022-08-12] MEDS ORDERED: HYDROmorphone 1 MG/ML Syringe IVPUSH PRN (08:16)
[2022-08-12] MEDS ORDERED: Naloxone 0.4 MG/ML SDV IVPUSH PRN (08:16)
[2022-08-12] MEDS ORDERED: Ondansetron 4 MG/2 ML SDV IVPUSH PRN ×2 (08:16→09:18)
[2022-08-12] MEDS ORDERED: ePHEDrine 50 MG/ML SDV IVPUSH PRN (08:16)
[2022-08-12] MEDS ORDERED: Albuterol 0.083% 2.5 MG/3 ML Neb Soln NEB PRN (08:16)
[2022-08-12] MEDS ORDERED: fentaNYL 50 MCG/ML SDV IVPUSH PRN (08:16)
[2022-08-12] MEDS ORDERED: Propofol 200 MG/20 ML SDV ONE (08:27)
[2022-08-12] MEDS ORDERED: Acetaminophen/oxyCODONE 325-5 MG Tab PO PRN ×2 (09:18)
[2022-08-12] MEDS ORDERED: Lanolin 100% Cream 7 GM Tube TOP PRN (09:18)
[2022-08-12] MEDS ORDERED: diphenhydrAMINE 50 MG/ML SDV IVPUSH PRN (09:18)
[2022-08-12] MEDS ORDERED: Tranexamic Acid 1,000 MG in Sodium Chloride 0.9% 100 ML IV PRN (09:18)
[2022-08-12] MEDS ORDERED: Bisacodyl 10 MG Supp RECTAL PRN (09:18)
[2022-08-12] MEDS ORDERED: Methylergonovine 0.2 MG/1 ML Amp IM PRN (09:18)
[2022-08-12] MEDS ORDERED: Misoprostol 200 MCG Tab RECTAL PRN (09:18)
[2022-08-12] MEDS ORDERED: Lactated Ringers 1,000 ML IV SCH (09:30)
[2022-08-12] MEDS: Phenylephrine HCl In 0.9% NaCl 1 MG/10 ML Vial IVPUSH SCH (13:10)
[2022-08-12] MEDS: Ketorolac 30 MG/ML SDV IVPUSH SCH ×2 (14:17→20:37)
[2022-08-12] MEDS: Acetaminophen 1,000 MG in Premix Bag 1 BAG IV SCH ×2 (14:18→21:23)
[2022-08-12] MEDS: Docusate Sodium 100 MG Cap PO SCH (20:37)
[2022-08-13] MEDS: Ketorolac 30 MG/ML SDV IVPUSH SCH (02:26)
[2022-08-13 08:06] VITALS: PULSE 91
[2022-08-13] MEDS ORDERED: Acetaminophen 500 MG Tab PO PRN (09:11)
[2022-08-13] MEDS: Docusate Sodium 100 MG Cap PO SCH (09:26)
[2022-08-13] MEDS ORDERED: Ibuprofen 800 MG Tab PO PRN (09:30)
[2022-08-13 12:06] VITALS: BP 108/60
== END 2022-08-13 14:22 | disposition home or self-care (01) | DRG 540 ==
LOC: INTOOBSV 05:01 → MW.OB 05:01 → OBSVTOIN 08:11 → MW.OB 11:52
PROVIDERS: ADMIT Obstetrics & Gynecology; ATTEND Obstetrics & Gynecology
PROC: 10D00Z1 Extraction of Products of Conception, Low, Open Approach (ICD-10-PCS; principal; 2022-08-12)
DX: O34.211 Maternal care for low transverse scar from previous cesarean delivery (principal); O13.4 Gestational [pregnancy-induced] hypertension without significant proteinuria, complicating childbirth; F41.9 Anxiety disorder, unspecified; O99.02 Anemia complicating childbirth; D64.9 Anemia, unspecified; O99.344 Other mental disorders complicating childbirth; O99.214 Obesity complicating childbirth; Z90.49 Acquired absence of other specified parts of digestive tract; Z98.84 Bariatric surgery status; Z3A.39 39 weeks gestation of pregnancy; Z37.0 Single live birth; Z86.16 Personal history of COVID-19
CPT/HCPCS: 36415; 59025; 82803; 85027; 86592; 86850; 86900; 86901; A9270-GY; J0131; J0690; J1100; J1885; J2274; J2370; J2405; J2590; J2704; J2795; J3490; J7120; U0002

== ENCOUNTER 2022-10-07 09:55 | Day surgery (SDC) | payer BC, OTHER ==
[~2022-10-07 09:55] MED LIST: Albuterol 0.083% 2.5 MG/3 ML Neb Soln NEB PRN; HYDROmorphone 1 MG/ML Syringe IVPUSH PRN; Lactated Ringers 1,000 ML IV SCH; Metoclopramide 10 MG/2 ML SDV IVPUSH PRN; Morphine 2 MG/ML SYRINGE IVPUSH PRN; Naloxone 0.4 MG/ML SDV IVPUSH PRN; Ondansetron 4 MG/2 ML SDV IVPUSH PRN; droPERidol 5 MG/2 ML SDV IVPUSH PRN; fentaNYL 50 MCG/ML SDV IVPUSH PRN
[2022-10-07] MEDS ORDERED: Lidocaine 1% 20 ML MDV ONE (10:21)
[2022-10-07] MEDS ORDERED: Ondansetron 4 MG/2 ML SDV ONE (10:28)
[2022-10-07] MEDS ORDERED: Propofol 200 MG/20 ML SDV ONE (10:28)
[2022-10-07] MEDS ORDERED: Ketorolac 30 MG/ML SDV ONE (10:28)
[2022-10-07] MEDS ORDERED: fentaNYL 100 MCG/2 ML SDV ONE (10:28)
[2022-10-07] MEDS ORDERED: Lidocaine 2% 5 ML SDV ONE (10:28)
[2022-10-07] MEDS ORDERED: Scopolamine 1.5 MG Transdermal Patch TOP ONE (11:00)
[2022-10-07 13:21] VITALS: BP 96/54; PULSE 85
== END 2022-10-07 12:15 | disposition home or self-care (01) ==
LOC: MW.SDS 09:55
PROVIDERS: ATTEND Obstetrics & Gynecology
DX: Z30.8 Encounter for other contraceptive management (principal); N90.7 Vulvar cyst; N89.8 Other specified noninflammatory disorders of vagina; E66.9 Obesity, unspecified; F32.A Depression, unspecified; D64.9 Anemia, unspecified; Z98.84 Bariatric surgery status; Z90.49 Acquired absence of other specified parts of digestive tract; Z79.899 Other long term (current) drug therapy; F17.210 Nicotine dependence, cigarettes, uncomplicated; F41.9 Anxiety disorder, unspecified; F43.10 Post-traumatic stress disorder, unspecified; Z68.30 Body mass index [BMI] 30.0-30.9, adult
CPT/HCPCS: 00940; 36415; 81025; 84703; 85027; A9270-GY; J0131; J1885; J2405; J2704; J3010; J3490; J7120

== ENCOUNTER 2022-11-11 17:56 | Day surgery (SDC) | payer BC ==
[2022-11-11] MEDS ORDERED: Acetaminophen/HYDROcodone 325-5 MG Tab PO ONE ×2 (19:35→23:50)
[2022-11-11] MEDS ORDERED: propofoL 50 ML ONE (20:00)
[2022-11-11] MEDS ORDERED: Succinylcholine/Sod PF 100 MG/5 ML SYRINGE IV ONE (20:01)
[2022-11-11] MEDS ORDERED: fentaNYL 100 MCG/2 ML SDV ONE (20:03)
[2022-11-11] MEDS ORDERED: HYDROmorphone 2 MG/ML Syringe IVPUSH PRN (20:50)
[2022-11-11] MEDS ORDERED: Ondansetron 4 MG/2 ML SDV IVPUSH PRN (20:50)
[2022-11-11] MEDS ORDERED: Sodium Chloride 0.9% 2.5 ML Syringe FLUSH PRN (20:50)
[2022-11-11] MEDS ORDERED: Sodium Chloride 0.9% 10 ML Syringe FLUSH PRN (20:50)
[2022-11-11] MEDS ORDERED: diphenhydrAMINE 50 MG/ML SDV IVPUSH PRN (20:50)
[2022-11-11] MEDS ORDERED: Sodium Chloride 0.9% 20 ML SDV IV PRN (20:50)
[2022-11-11] MEDS ORDERED: ceFAZolin 2 GM in Sodium Chloride 0.9% 50 ML IV SCH (21:00)
[2022-11-11] MEDS ORDERED: Ketorolac 30 MG/ML SDV IVPUSH SCH (21:00)
[2022-11-11] MEDS ORDERED: Lactated Ringers 1,000 ML IV SCH (21:00)
[2022-11-11] MEDS ORDERED: Bupivacaine 0.5% 30 ML SDV ONE (22:29)
[2022-11-11] MEDS ORDERED: Acetaminophen/HYDROcodone 325-10 MG Tab PO ONE (23:50)
[2022-11-12 00:30] VITALS: BP 114/64; PULSE 94
== END 2022-11-12 00:32 | disposition home or self-care (01) ==
LOC: MW.ED 17:56 → MW.SDS 20:43 → MW.MS 22:40 → MW.SDS 11-12 00:32
PROVIDERS: ATTEND Surgery
DX: N61.1 Abscess of the breast and nipple (principal); F41.9 Anxiety disorder, unspecified; F32.A Depression, unspecified; F43.10 Post-traumatic stress disorder, unspecified; Z90.49 Acquired absence of other specified parts of digestive tract; Z98.84 Bariatric surgery status; Z79.899 Other long term (current) drug therapy; F17.210 Nicotine dependence, cigarettes, uncomplicated
CPT/HCPCS: 81025; 87070; 87075; 87205; 99284; A9270-GY; J0330; J0690; J1170; J1885; J2704; J3010; J3490; J7120

== ENCOUNTER 2023-02-19 06:24 | Day surgery (SDC) | payer BC ==
[~2023-02-19 06:24] MED LIST changes: -Albuterol 0.083% 2.5 MG/3 ML Neb Soln NEB PRN; -HYDROmorphone 1 MG/ML Syringe IVPUSH PRN; -Metoclopramide 10 MG/2 ML SDV IVPUSH PRN; -Morphine 2 MG/ML SYRINGE IVPUSH PRN; -Naloxone 0.4 MG/ML SDV IVPUSH PRN; -Ondansetron 4 MG/2 ML SDV IVPUSH PRN; +Sodium Chloride 0.9% 10 ML Syringe FLUSH PRN; +Sodium Chloride 0.9% 2.5 ML Syringe FLUSH PRN; +Sodium Chloride 0.9% 20 ML SDV IV PRN; -droPERidol 5 MG/2 ML SDV IVPUSH PRN; -fentaNYL 50 MCG/ML SDV IVPUSH PRN
[2023-02-19] MEDS ORDERED: droPERidol 5 MG/2 ML SDV IVPUSH PRN (07:17)
[2023-02-19] MEDS ORDERED: fentaNYL 50 MCG/ML SDV IVPUSH PRN (07:17)
[2023-02-19] MEDS ORDERED: Metoclopramide 10 MG/2 ML SDV IVPUSH PRN (07:17)
[2023-02-19] MEDS ORDERED: Naloxone 0.4 MG/ML SDV IVPUSH PRN (07:17)
[2023-02-19] MEDS ORDERED: HYDROmorphone 1 MG/ML Syringe IVPUSH PRN (07:17)
[2023-02-19] MEDS ORDERED: Morphine 2 MG/ML SYRINGE IVPUSH PRN (07:17)
[2023-02-19] MEDS ORDERED: Albuterol 0.083% 2.5 MG/3 ML Neb Soln NEB PRN (07:17)
[2023-02-19] MEDS ORDERED: Ondansetron 4 MG/2 ML SDV IVPUSH PRN (07:17)
[2023-02-19] MEDS ORDERED: propofoL 50 ML ONE (07:33)
[2023-02-19] MEDS ORDERED: fentaNYL 250 MCG/5 ML SDV ONE (07:34)
[2023-02-19] MEDS ORDERED: Propofol 200 MG/20 ML SDV ONE (07:34)
[2023-02-19] MEDS ORDERED: ceFAZolin 2 GM Vial ONE (07:37)
[2023-02-19] MEDS ORDERED: Ketorolac 30 MG/ML SDV ONE (07:37)
[2023-02-19] MEDS ORDERED: Dexamethasone 4 MG/ML 5 ML MDV ONE (07:37)
[2023-02-19] MEDS ORDERED: Ondansetron 4 MG/2 ML SDV ONE (07:37)
[2023-02-19] MEDS ORDERED: Bupivacaine 0.5% 30 ML SDV ONE (07:38)
[2023-02-19 09:46] VITALS: BP 112/61; PULSE 74
[2023-02-19] MEDS ORDERED: ceFAZolin 2 GM in Sodium Chloride 0.9% 50 ML IV ONE (15:57)
== END 2023-02-19 09:30 | disposition home or self-care (01) ==
LOC: MW.SDS 06:24
PROVIDERS: ATTEND Surgery
DX: N60.49 Mammary duct ectasia of unspecified breast (principal); D64.9 Anemia, unspecified; F41.9 Anxiety disorder, unspecified; F43.10 Post-traumatic stress disorder, unspecified; F32.A Depression, unspecified; Z79.899 Other long term (current) drug therapy; Z90.49 Acquired absence of other specified parts of digestive tract; Z98.84 Bariatric surgery status; Z87.59 Personal history of other complications of pregnancy, childbirth and the puerperium; F17.210 Nicotine dependence, cigarettes, uncomplicated
CPT/HCPCS: 19120; 81025; J0131; J0690; J1100; J1885; J2405; J2704; J3010; J3490; J7120; 00400

== ENCOUNTER 2023-05-07 05:58 | Emergency (ER) | payer BC ==
[2023-05-07] MEDS ORDERED: Tetracaine HCl/PF 0.5% 4 ML Bottle EYEBOTH STA (06:13)
[2023-05-07] MEDS ORDERED: Tetracaine HCl/PF 0.5% 4 ML Bottle ONE (06:14)
[2023-05-07] MEDS ORDERED: Sodium Chloride 0.9% 10 ML Syringe FLUSH PRN (06:23)
[2023-05-07] MEDS ORDERED: Sodium Chloride 0.9% 2.5 ML Syringe FLUSH PRN (06:23)
[2023-05-07 07:00] LABS: BASOPHILS ABSOLUTE AUTO 0.05 K/uL (0.00-0.20); BASOPHILS PERCENT AUTO 0.4 % (0.0-1.0); EOSINOPHILS ABSOLUTE AUTO 0.14 K/uL (0.00-0.45); EOSINOPHILS PERCENT AUTO 1.1 % (0.0-6.0); HEMATOCRIT 35.1 % (37.0-47.0); HEMOGLOBIN 11.7 g/dL (12.0-16.0); IMMATURE GRAN ABSOLUTE AUTO 0.04 K/uL (0.00-0.05); IMMATURE GRAN PERCENT AUTO 0.3 % (0.0-0.4); LYMPHOCYTES ABSOLUTE AUTO 1.35 K/uL (1.00-4.80); LYMPHOCYTES PERCENT AUTO 10.9 % (24.0-44.0); MEAN CORPUSCULAR HEMOGLOBIN 26.2 pg (28.0-32.0); MEAN CORPUSCULAR HGB CONC 33.3 g/dL (32.0-36.0); MEAN CORPUSCULAR VOLUME 78.5 fL (83.0-99.0); MEAN PLATELET VOLUME 9.5 fL (9.4-12.3); MONOCYTES ABSOLUTE AUTO 1.05 K/uL (0.00-0.80); MONOCYTES PERCENT AUTO 8.4 % (0.0-8.0); NEUTROPHILS PERCENT AUTO 78.9 % (41.0-71.0); PLATELET COUNT,PLT 243 K/uL (150-400); RED BLOOD CELL COUNT 4.47 M/uL (4.10-5.30); WHITE BLOOD CELL COUNT,WBC 12.43 K/uL (3.9-11.3)
[2023-05-07] MEDS ORDERED: Ibuprofen 600 MG Tab PO ONE (07:13)
[2023-05-07 07:15] LABS: BILIRUBIN TOTAL 0.4 mg/dL (0.2-1.0); CALCIUM 8.5 mg/dL (8.5-10.1); CARBON DIOXIDE,CO2 27.8 mmol/L (21.0-32.0); CREATININE 0.8 mg/dL (0.6-1.0); EST CRCL DRUG DOSING (CG) 83.95 mL/min; POTASSIUM,K 4.3 mmol/L (3.5-5.1); PROTEIN TOTAL,TP 5.9 g/dL (6.4-8.2)
[2023-05-07] MEDS ORDERED: Iopamidol 755 MG/ML 500 ML Multipack Bottle IVPUSH STA (07:37)
[2023-05-07 08:50] VITALS: BP 101/58; PULSE 96
== END 2023-05-07 09:05 | disposition home or self-care (01) ==
LOC: MW.ED 05:58
DX: S02.31XA Fracture of orbital floor, right side, initial encounter for closed fracture (principal); Z79.899 Other long term (current) drug therapy; Z90.49 Acquired absence of other specified parts of digestive tract; W50.1XXA Accidental kick by another person, initial encounter
CPT/HCPCS: 36415; 70481; 80053; 85025; 99284; A9270; J3490; Q9967

== ENCOUNTER 2023-05-09 06:24 | Emergency (ER) | payer BC ==
[2023-05-09] MEDS ORDERED: Sodium Chloride 0.9% 10 ML Syringe FLUSH PRN (06:33)
[2023-05-09] MEDS ORDERED: Sodium Chloride 0.9% 2.5 ML Syringe FLUSH PRN (06:33)
[2023-05-09 06:52] LABS: HEMOGLOBIN 12.6 g/dL (12.0-16.0); MEAN CORPUSCULAR HEMOGLOBIN 26.1 pg (28.0-32.0); MEAN CORPUSCULAR HGB CONC 33.2 g/dL (32.0-36.0); MEAN CORPUSCULAR VOLUME 78.7 fL (83.0-99.0); MEAN PLATELET VOLUME 9.2 fL (9.4-12.3); PLATELET COUNT,PLT 254 K/uL (150-400); RED BLOOD CELL COUNT 4.83 M/uL (4.10-5.30); WHITE BLOOD CELL COUNT,WBC 13.18 K/uL (3.9-11.3)
[2023-05-09 07:10] LABS: EOSINOPHILS ABSOLUTE MAN 0.13 K/uL (0.00-0.45); EOSINOPHILS PERCENT MAN 1 % (0-6); LYMPHOCYTES ABSOLUTE MAN 2.24 K/uL (1.00-4.80); LYMPHOCYTES PERCENT MAN 17 % (24-44); MONOCYTES ABSOLUTE MAN 1.05 K/uL (0.00-0.80); MONOCYTES PERCENT MAN 8 % (0-8); SEG NEUTROPHILS ABSOLUTE MAN 9.75 K/uL (1.80-7.70); SEG NEUTROPHILS PERCENT MAN 74 % (41-71)
[2023-05-09 07:11] LABS: A/G RATIO 0.8 (0.9-1.6); ALBUMIN 2.9 g/dL (3.4-5.0); BILIRUBIN TOTAL 0.2 mg/dL (0.2-1.0); CALCIUM 9.1 mg/dL (8.5-10.1); CARBON DIOXIDE,CO2 27.5 mmol/L (21.0-32.0); CREATININE 0.8 mg/dL (0.6-1.0); EST CRCL DRUG DOSING (CG) 83.95 mL/min; POTASSIUM,K 3.4 mmol/L (3.5-5.1); PROTEIN TOTAL,TP 6.6 g/dL (6.4-8.2)
[2023-05-09] MEDS ORDERED: Morphine 4 MG/ML Syringe IVPUSH ONE (07:21)
[2023-05-09] MEDS ORDERED: Iopamidol 755 MG/ML 500 ML Multipack Bottle IVPUSH STA (07:22)
[2023-05-09] MEDS ORDERED: Piperacillin/Tazobactam 4.5 GM in Sodium Chloride 0.9% 100 ML IV ONE (07:23)
[2023-05-09] MEDS ORDERED: VANCOmycin 1.25 GM/250 ML 250 ML IV ONE (07:30)
[2023-05-09 10:51] VITALS: BP 131/83; PULSE 94
== END 2023-05-09 10:51 | disposition home or self-care (01) ==
LOC: MW.ED 06:24
DX: H05.011 Cellulitis of right orbit (principal); Z90.49 Acquired absence of other specified parts of digestive tract; Z79.899 Other long term (current) drug therapy
CPT/HCPCS: 36415; 70481; 80053; 85025; 96365; 96366; 96367; 96375; 99284; J2270; J2543; J3370; J3490; Q9967

== ENCOUNTER 2024-04-03 07:13 | Emergency (ER) | payer SELFPAY ==
[2024-04-03] MEDS ORDERED: Sodium Chloride 0.9% 2.5 ML Syringe FLUSH PRN (07:28)
[2024-04-03] MEDS: Sodium Chloride 0.9% 10 ML Syringe FLUSH PRN (07:41)
[2024-04-03] MEDS: Ondansetron 4 MG/2 ML SDV IVPUSH ONE (07:41)
[2024-04-03] MEDS: Prochlorperazine 10 MG/2 ML SDV IVPUSH ONE (07:46)
[2024-04-03] MEDS: Acetaminophen 325 MG Tab PO ONE (07:46)
[2024-04-03 07:50] LABS: BASOPHILS ABSOLUTE AUTO 0.07 K/uL (0.00-0.20); BASOPHILS PERCENT AUTO 0.4 % (0.0-1.0); EOSINOPHILS ABSOLUTE AUTO 0.14 K/uL (0.00-0.45); EOSINOPHILS PERCENT AUTO 0.9 % (0.0-6.0); HEMATOCRIT 42.2 % (37.0-47.0); HEMOGLOBIN 13.3 g/dL (12.0-16.0); IMMATURE GRAN ABSOLUTE AUTO 0.06 K/uL (0.00-0.05); IMMATURE GRAN PERCENT AUTO 0.4 % (0.0-0.4); LYMPHOCYTES ABSOLUTE AUTO 0.92 K/uL (1.00-4.80); LYMPHOCYTES PERCENT AUTO 5.8 % (24.0-44.0); MEAN CORPUSCULAR HEMOGLOBIN 24.1 pg (28.0-32.0); MEAN CORPUSCULAR HGB CONC 31.5 g/dL (32.0-36.0); MEAN CORPUSCULAR VOLUME 76.6 fL (83.0-99.0); MEAN PLATELET VOLUME 9.4 fL (9.4-12.3); MONOCYTES ABSOLUTE AUTO 0.93 K/uL (0.00-0.80); MONOCYTES PERCENT AUTO 5.9 % (0.0-8.0); NEUTROPHILS ABSOLUTE AUTO 13.66 K/uL (1.80-7.70); NEUTROPHILS PERCENT AUTO 86.6 % (41.0-71.0); PLATELET COUNT,PLT 280 K/uL (150-400); RED BLOOD CELL COUNT 5.51 M/uL (4.10-5.30); WHITE BLOOD CELL COUNT,WBC 15.78 K/uL (3.9-11.3)
[2024-04-03 08:07] LABS: A/G RATIO 1.1 (0.9-1.6); ALBUMIN 3.3 g/dL (3.4-5.0); BILIRUBIN TOTAL 0.5 mg/dL (0.2-1.0); CALCIUM 8.6 mg/dL (8.5-10.1); CREATININE 0.9 mg/dL (0.6-1.0); EST CRCL DRUG DOSING (CG) 73.9 mL/min; POTASSIUM,K 4.6 mmol/L (3.5-5.1); PROTEIN TOTAL,TP 6.2 g/dL (6.4-8.2)
[2024-04-03 08:11] VITALS: BP 109/66
[2024-04-03 08:46] LABS: APPEARANCE,URINE CLEAR; BILIRUBIN,URINE NEGATIVE (NEGATIVE); COLOR,URINE YELLOW; GLUCOSE,URINE NEGATIVE (NEGATIVE); KETONES,URINE NEGATIVE (NEGATIVE); LEUKOCYTE ESTERASE,URINE NEGATIVE (NEGATIVE); NITRITE,URINE NEGATIVE (NEGATIVE); OCCULT BLOOD,URINE NEGATIVE (NEGATIVE); PH,URINE 5.5 (5.0-8.0); PROTEIN,URINE NEGATIVE (NEGATIVE); UROBILINOGEN,URINE 0.2 EU/dL (<2.0)
[2024-04-03 09:23] VITALS: PULSE 106
== END 2024-04-03 09:23 | disposition home or self-care (01) ==
LOC: MW.ED 07:13
DX: K52.9 Noninfective gastroenteritis and colitis, unspecified (principal); E86.0 Dehydration; Z90.49 Acquired absence of other specified parts of digestive tract; Z75.8 Other problems related to medical facilities and other health care
CPT/HCPCS: 36415; 80053; 81003; 81025; 83690; 85025; 96374; 96375; 99284; A9270; J0780; J2405; J3490

== ENCOUNTER 2024-08-31 12:07 | Emergency (ER) | payer BC ==
[2024-08-31 12:52] VITALS: BP 109/71; PULSE 98
[2024-08-31] MEDS: Benzocaine 20% Topical Spray UD MUCMEM ONE (14:23)
[2024-08-31] MEDS: Lidocaine 2% Viscous Solution 15 ML UD PO ONE (14:23)
== END 2024-08-31 14:20 | disposition home or self-care (01) ==
LOC: MW.ED 12:07
DX: K08.89 Other specified disorders of teeth and supporting structures (principal); Z76.0 Encounter for issue of repeat prescription; Z75.8 Other problems related to medical facilities and other health care; Z79.899 Other long term (current) drug therapy
CPT/HCPCS: 99282; A9270; 99283

== ENCOUNTER 2024-11-10 16:07 | Emergency (ER) | payer BC ==
[2024-11-10 16:41] LABS: BASOPHILS ABSOLUTE AUTO 0.05 K/uL (0.00-0.20); HEMOGLOBIN 11.6 g/dL (12.0-16.0); LYMPHOCYTES ABSOLUTE AUTO 1.67 K/uL (1.00-4.80); MEAN CORPUSCULAR HEMOGLOBIN 23.7 pg (28.0-32.0); MEAN CORPUSCULAR HGB CONC 31.4 g/dL (32.0-36.0); MEAN CORPUSCULAR VOLUME 75.5 fL (83.0-99.0); MEAN PLATELET VOLUME 9.2 fL (9.4-12.3); MONOCYTES ABSOLUTE AUTO 0.42 K/uL (0.00-0.80); MONOCYTES PERCENT AUTO 8.3 % (0.0-8.0); NEUTROPHILS ABSOLUTE AUTO 2.72 K/uL (1.80-7.70); NEUTROPHILS PERCENT AUTO 53.7 % (41.0-71.0); PLATELET COUNT,PLT 243 K/uL (150-400); WHITE BLOOD CELL COUNT,WBC 5.06 K/uL (3.9-11.3)
[2024-11-10 17:17] LABS: A/G RATIO 1.2 (0.9-1.6); ACETAMINOPHEN < 2.0 ug/mL; ALANINE AMINOTRANSFERASE,ALT 127 IU/L (14-63); ALBUMIN 2.9 g/dL (3.4-5.0); ALKALINE PHOSPHATASE 148 U/L (46-116); ASPARTATE AMNIOTRANSFERASE,AST 140 IU/L (15-37); BILIRUBIN TOTAL 0.2 mg/dL (0.2-1.0); BLOOD UREA NITROGEN,BUN 6 mg/dL (7.0-18.0); CARBON DIOXIDE,CO2 23.7 mmol/L (21.0-32.0); CHLORIDE,CL 110 mmol/L (98-107); CREATININE 0.9 mg/dL (0.6-1.0); EST CRCL DRUG DOSING (CG) 73.19 mL/min; ETHANOL BLOOD MEDICAL 176 mg/dL; GLUCOSE RANDOM 67 mg/dL (74-106); MAGNESIUM 1.7 mg/dL (1.8-2.4); POTASSIUM,K 3.3 mmol/L (3.5-5.1); PROTEIN TOTAL,TP 5.4 g/dL (6.4-8.2); SALICYLATE 1.9 mg/dL (0.0-20.0); SODIUM,NA 145 mmol/L (136-145); T3 FREE 1.73 pg/mL (2.18-3.98); T4 FREE 0.63 ng/dL (0.76-1.46); TSH ULTRASENSITIVE 0.29 uIU/mL (0.36-3.74)
[2024-11-10 17:20] LABS: APPEARANCE,URINE CLEAR; BILIRUBIN,URINE NEGATIVE (NEGATIVE); COLOR,URINE YELLOW; GLUCOSE,URINE NEGATIVE (NEGATIVE); KETONES,URINE NEGATIVE (NEGATIVE); LEUKOCYTE ESTERASE,URINE NEGATIVE (NEGATIVE); NITRITE,URINE NEGATIVE (NEGATIVE); OCCULT BLOOD,URINE TRACE-INTACT (NEGATIVE); PROTEIN,URINE NEGATIVE (NEGATIVE); UROBILINOGEN,URINE 0.2 EU/dL (<2.0)
[2024-11-10 17:30] LABS: AMPHETAMINES SCREEN, URINE NEGATIVE (CUTOFF=500); BARBITURATE SCREEN,URINE NEGATIVE (CUTOFF=200); BENZODIAZEPINES SCREEN,URINE NEGATIVE (CUTOFF=150); BUPRENORPHINE SCREEN,URINE NEGATIVE (CUTOFF=10); METHADONE SCREEN, URINE NEGATIVE (CUTOFF=200); METHAMPHETAMINES SCREEN, URINE NEGATIVE (CUTOFF=500); OXYCODONE SCREEN,URINE NEGATIVE (CUT0FF=100); PCP SCREEN,URINE NEGATIVE (CUTOFF=25); THC SCREEN,URINE 20 NG/ML NEGATIVE (CUTOFF=50)
[2024-11-10 17:30] LABS: ESTIMATED GFR 84 mL/min (>60)
[2024-11-10 17:33] LABS: BACTERIA,URINE FEW (NEGATIVE); EPITHELIAL CELLS,URINE RARE (NONE-FEW); RBC,URINE 0-1 (0-2/HPF); WBC,URINE 0-1 (0-5/HPF)
[2024-11-10] MEDS: Thiamine 100 MG Tab PO ONE (17:55)
[2024-11-10] MEDS: Multivitamin Tab PO ONE (17:55)
[2024-11-10] MEDS: Folic Acid 1 MG Tab PO ONE (17:55)
[2024-11-10 19:12] VITALS: BP 128/85; PULSE 93
== END 2024-11-10 19:12 | disposition home or self-care (01) ==
LOC: MW.ED 16:07
DX: F10.120 Alcohol abuse with intoxication, uncomplicated (principal); Z90.49 Acquired absence of other specified parts of digestive tract; Z79.899 Other long term (current) drug therapy
CPT/HCPCS: 36415; 80053; 80143; 80179; 80305; 80307; 81001; 81025; 83735; 84439; 84443; 84481; 85025; 93005; 99285; A9270; 93010; 99283

== ENCOUNTER 2024-12-22 09:27 | Emergency (ER) | payer BC ==
[2024-12-22 11:11] VITALS: BP 106/64; PULSE 94
== END 2024-12-22 11:10 | disposition home or self-care (01) ==
LOC: MW.ED 09:27
DX: G60.3 Idiopathic progressive neuropathy (principal); F17.210 Nicotine dependence, cigarettes, uncomplicated; Z79.899 Other long term (current) drug therapy; Z75.3 Unavailability and inaccessibility of health-care facilities
CPT/HCPCS: 99283

== ENCOUNTER 2025-03-13 04:37 | Inpatient (IN) | payer BC ==
[2025-03-13 05:09] LABS: BASOPHILS ABSOLUTE AUTO 0.05 K/uL (0.00-0.20); BASOPHILS PERCENT AUTO 0.8 % (0.0-1.0); EOSINOPHILS ABSOLUTE AUTO 0.12 K/uL (0.00-0.45); EOSINOPHILS PERCENT AUTO 2.0 % (0.0-6.0); IMMATURE GRAN ABSOLUTE AUTO 0.01 K/uL (0.00-0.05); IMMATURE GRAN PERCENT AUTO 0.2 % (0.0-0.4); LYMPHOCYTES ABSOLUTE AUTO 2.40 K/uL (1.00-4.80); LYMPHOCYTES PERCENT AUTO 40.0 % (24.0-44.0); MEAN PLATELET VOLUME 8.8 fL (9.4-12.3); MONOCYTES ABSOLUTE AUTO 0.46 K/uL (0.00-0.80); MONOCYTES PERCENT AUTO 7.7 % (0.0-8.0); NEUTROPHILS ABSOLUTE AUTO 2.96 K/uL (1.80-7.70); NEUTROPHILS PERCENT AUTO 49.3 % (41.0-71.0); NRBC ABSOLUTE 0.00 K/uL (0.00-0.02); NRBC PERCENT 0.0 /100WBC (0.0-0.2); PLATELET COUNT,PLT 283 K/uL (150-400); RED BLOOD CELL COUNT 5.54 M/uL (4.10-5.30); WHITE BLOOD CELL COUNT,WBC 6.00 K/uL (3.9-11.3)
[2025-03-13] MEDS: Iopamidol 755 MG/ML 500 ML Multipack Bottle IVPUSH ONE (05:21)
[2025-03-13] MEDS: Thiamine 200 MG/2 ML MDV IVPUSH ONE (05:38)
[2025-03-13] MEDS: Folic Acid 1 MG/0.2 ML UD Syringe IV SCH (05:38)
[2025-03-13 05:45] LABS: A/G RATIO 1.1 (0.9-1.6); ALANINE AMINOTRANSFERASE,ALT 81 IU/L (14-63); ASPARTATE AMNIOTRANSFERASE,AST 70 IU/L (15-37); BILIRUBIN TOTAL 0.5 mg/dL (0.2-1.0); BLOOD UREA NITROGEN,BUN 8 mg/dL (7.0-18.0); CARBON DIOXIDE,CO2 26.4 mmol/L (21.0-32.0); CHLORIDE,CL 103 mmol/L (98-107); CREATININE 0.7 mg/dL (0.6-1.0); ESTIMATED GFR 113 mL/min (>60); ETHANOL BLOOD MEDICAL 6 mg/dL; GLUCOSE RANDOM 90 mg/dL (74-106); HCG QUANTITATIVE < 1.0 mIU/mL; POTASSIUM,K 3.8 mmol/L (3.5-5.1); PROTEIN TOTAL,TP 6.6 g/dL (6.4-8.2); SODIUM,NA 142 mmol/L (136-145)
[2025-03-13] MEDS: Thiamine 400 MG in Sodium Chloride 0.9% 250 ML IV ONE (07:51)
[2025-03-13] MEDS ORDERED: Sodium Chloride 0.9% 10 ML Syringe FLUSH PRN (08:20)
[2025-03-13] MEDS: Ondansetron 4 MG/2 ML SDV IVPUSH PRN (10:44)
[2025-03-13] MEDS: Nystatin Susp 100,000 Unit/ML 5 ML UD Cup PO SCH (11:02)
[2025-03-13 12:04] LABS: APPEARANCE,URINE SLT CLOUDY; GLUCOSE,URINE NEGATIVE (NEGATIVE); OCCULT BLOOD,URINE NEGATIVE (NEGATIVE)
[2025-03-13 12:14] LABS: AMPHETAMINES SCREEN, URINE NEGATIVE (CUTOFF=500); BUPRENORPHINE SCREEN,URINE NEGATIVE (CUTOFF=10); METHADONE SCREEN, URINE NEGATIVE (CUTOFF=200); METHAMPHETAMINES SCREEN, URINE PRESUMPTIVE POSITIVE (CUTOFF=500); OXYCODONE SCREEN,URINE NEGATIVE (CUT0FF=100); PCP SCREEN,URINE NEGATIVE (CUTOFF=25); THC SCREEN,URINE 20 NG/ML NEGATIVE (CUTOFF=50)
[2025-03-14 05:29] LABS: BASOPHILS ABSOLUTE AUTO 0.03 K/uL (0.00-0.20); BASOPHILS PERCENT AUTO 0.6 % (0.0-1.0); EOSINOPHILS ABSOLUTE AUTO 0.16 K/uL (0.00-0.45); EOSINOPHILS PERCENT AUTO 3.1 % (0.0-6.0); IMMATURE GRAN ABSOLUTE AUTO 0.01 K/uL (0.00-0.05); IMMATURE GRAN PERCENT AUTO 0.2 % (0.0-0.4); LYMPHOCYTES ABSOLUTE AUTO 2.62 K/uL (1.00-4.80); LYMPHOCYTES PERCENT AUTO 50.4 % (24.0-44.0); MEAN PLATELET VOLUME 9.5 fL (9.4-12.3); MONOCYTES ABSOLUTE AUTO 0.44 K/uL (0.00-0.80); MONOCYTES PERCENT AUTO 8.5 % (0.0-8.0); NEUTROPHILS ABSOLUTE AUTO 1.94 K/uL (1.80-7.70); NEUTROPHILS PERCENT AUTO 37.2 % (41.0-71.0); NRBC ABSOLUTE 0.00 K/uL (0.00-0.02); NRBC PERCENT 0.0 /100WBC (0.0-0.2); PLATELET COUNT,PLT 202 K/uL (150-400); RED BLOOD CELL COUNT 4.73 M/uL (4.10-5.30); WHITE BLOOD CELL COUNT,WBC 5.20 K/uL (3.9-11.3)
[2025-03-14 05:56] LABS: A/G RATIO 1.1 (0.9-1.6); ALANINE AMINOTRANSFERASE,ALT 51.0 IU/L (14-63); ASPARTATE AMNIOTRANSFERASE,AST 38.0 IU/L (15-37); BILIRUBIN TOTAL 0.5 mg/dL (0.2-1.0); BLOOD UREA NITROGEN,BUN 7.0 mg/dL (7.0-18.0); CARBON DIOXIDE,CO2 27.6 mmol/L (21.0-32.0); CHLORIDE,CL 109.0 mmol/L (98-107); CREATININE 0.7 mg/dL (0.6-1.0); EST CRCL DRUG DOSING (CG) 94.1 mL/min; GLUCOSE RANDOM 89.0 mg/dL (74-106); PHOSPHORUS 3.6 mg/dL (2.6-4.7); POTASSIUM,K 4.0 mmol/L (3.5-5.1); PROTEIN TOTAL,TP 5.0 g/dL (6.4-8.2); SODIUM,NA 144.0 mmol/L (136-145)
[2025-03-14 05:59] LABS: ESTIMATED GFR 113.0 mL/min (>60)
[2025-03-14 12:03] VITALS: BP 133/90; PULSE 111
== END 2025-03-14 11:50 | disposition home or self-care (01) | DRG 775 ==
LOC: MW.ED 04:37 → MW.MS 08:07
PROVIDERS: ADMIT Internal Medicine; ATTEND Internal Medicine
PROC: HZ2ZZZZ Detoxification Services for Substance Abuse Treatment (ICD-10-PCS; principal; 2025-03-13)
DX: F10.139 Alcohol abuse with withdrawal, unspecified (principal); G43.909 Migraine, unspecified, not intractable, without status migrainosus; F41.9 Anxiety disorder, unspecified; M54.9 Dorsalgia, unspecified; F32.A Depression, unspecified; G89.29 Other chronic pain; E61.1 Iron deficiency; R20.0 Anesthesia of skin; R74.01 Elevation of levels of liver transaminase levels; D64.9 Anemia, unspecified; F17.200 Nicotine dependence, unspecified, uncomplicated; F43.12 Post-traumatic stress disorder, chronic; Z90.49 Acquired absence of other specified parts of digestive tract; Z98.890 Other specified postprocedural states; Z98.891 History of uterine scar from previous surgery; Z79.899 Other long term (current) drug therapy
CPT/HCPCS: 36415; 70450; 70450-26; 70496; 70496-26; 70498; 70498-26; 70551; 70551-26; 71045; 71045-26; 80053; 80305; 80307; 81003; 82607; 82947; 83735; 84100; 84484; 84702; 85025; 93005; 93010; 96374; 97162-GP; 99223; 99238; 99285; 99285-25; A9270-GY; J2405; J3411; J3490; J7030; J7050; Q9967

== ENCOUNTER 2025-03-30 06:20 | Emergency (ER) | payer BC ==
[2025-03-30] MEDS ORDERED: THIAMINE IV ONE (06:55)
[2025-03-30] MEDS ORDERED: SODIUM CHLORIDE 0.9% IV ONE (06:55)
[2025-03-30 07:00] LABS: BASOPHILS ABSOLUTE AUTO 0.05 K/uL (0.00-0.20); BASOPHILS PERCENT AUTO 0.6 % (0.0-1.0); EOSINOPHILS ABSOLUTE AUTO 0.03 K/uL (0.00-0.45); EOSINOPHILS PERCENT AUTO 0.4 % (0.0-6.0); IMMATURE GRAN ABSOLUTE AUTO 0.01 K/uL (0.00-0.05); IMMATURE GRAN PERCENT AUTO 0.1 % (0.0-0.4); LYMPHOCYTES ABSOLUTE AUTO 2.02 K/uL (1.00-4.80); LYMPHOCYTES PERCENT AUTO 25.4 % (24.0-44.0); MEAN PLATELET VOLUME 9.5 fL (9.4-12.3); MONOCYTES ABSOLUTE AUTO 0.51 K/uL (0.00-0.80); MONOCYTES PERCENT AUTO 6.4 % (0.0-8.0); NEUTROPHILS ABSOLUTE AUTO 5.33 K/uL (1.80-7.70); NEUTROPHILS PERCENT AUTO 67.1 % (41.0-71.0); NRBC ABSOLUTE 0.00 K/uL (0.00-0.02); NRBC PERCENT 0.0 /100WBC (0.0-0.2); PLATELET COUNT,PLT 359 K/uL (150-400); RED BLOOD CELL COUNT 5.33 M/uL (4.10-5.30); WHITE BLOOD CELL COUNT,WBC 7.95 K/uL (3.9-11.3)
[2025-03-30] MEDS: Folic Acid 1 MG/0.2 ML UD Syringe IV SCH (07:01)
[2025-03-30] MEDS: LORazepam 2 MG/ML SDV IVPUSH ONE (07:01)
[2025-03-30 07:48] LABS: A/G RATIO 1.2 (0.9-1.6); ALANINE AMINOTRANSFERASE,ALT 103 IU/L (14-63); ASPARTATE AMNIOTRANSFERASE,AST 67 IU/L (15-37); BILIRUBIN TOTAL 0.5 mg/dL (0.2-1.0); BLOOD UREA NITROGEN,BUN 9 mg/dL (7.0-18.0); CARBON DIOXIDE,CO2 30.6 mmol/L (21.0-32.0); CHLORIDE,CL 104 mmol/L (98-107); CREATININE 0.9 mg/dL (0.6-1.0); EST CRCL DRUG DOSING (CG) 76.26 mL/min; ETHANOL BLOOD MEDICAL <3 mg/dL; GLUCOSE RANDOM 106 mg/dL (74-106); POTASSIUM,K 4.2 mmol/L (3.5-5.1); PROTEIN TOTAL,TP 6.2 g/dL (6.4-8.2); SODIUM,NA 142 mmol/L (136-145)
[2025-03-30 08:01] LABS: ESTIMATED GFR 84 mL/min (>60)
[2025-03-30 08:32] LABS: APPEARANCE,URINE CLEAR; GLUCOSE,URINE NEGATIVE (NEGATIVE); OCCULT BLOOD,URINE NEGATIVE (NEGATIVE)
[2025-03-30 08:41] LABS: AMPHETAMINES SCREEN, URINE NEGATIVE (CUTOFF=500); BUPRENORPHINE SCREEN,URINE NEGATIVE (CUTOFF=10); METHADONE SCREEN, URINE NEGATIVE (CUTOFF=200); METHAMPHETAMINES SCREEN, URINE NEGATIVE (CUTOFF=500); OXYCODONE SCREEN,URINE NEGATIVE (CUT0FF=100); PCP SCREEN,URINE NEGATIVE (CUTOFF=25); THC SCREEN,URINE 20 NG/ML NEGATIVE (CUTOFF=50)
[2025-03-30 08:45] LABS: EPITHELIAL CELLS,URINE FEW (NONE-FEW)
[2025-03-31 07:17] VITALS: BP 117/70; PULSE 102
== END 2025-03-30 11:47 | disposition home or self-care (01) ==
LOC: MW.ED 06:20
DX: F10.239 Alcohol dependence with withdrawal, unspecified (principal); R45.851 Suicidal ideations; Y90.0 Blood alcohol level of less than 20 mg/100 ml; Z79.899 Other long term (current) drug therapy; Z90.49 Acquired absence of other specified parts of digestive tract
CPT/HCPCS: 36415; 80053; 80143; 80179; 80305; 80307; 81001; 84702; 85025; 96365; 96375; 99284; J2060; J3411; J7050; J3490

== ENCOUNTER 2025-04-26 08:31 | Emergency (ER) | payer BC ==
[2025-04-26] MEDS ORDERED: Sodium Chloride 0.9% 2.5 ML Syringe FLUSH PRN (09:14)
[2025-04-26] MEDS ORDERED: Sodium Chloride 0.9% 10 ML Syringe FLUSH PRN (09:14)
[2025-04-26 09:28] LABS: BASOPHILS ABSOLUTE AUTO 0.06 K/uL (0.00-0.20); BASOPHILS PERCENT AUTO 1.4 % (0.0-1.0); EOSINOPHILS ABSOLUTE AUTO 0.07 K/uL (0.00-0.45); EOSINOPHILS PERCENT AUTO 1.7 % (0.0-6.0); IMMATURE GRAN ABSOLUTE AUTO 0.00 K/uL (0.00-0.05); IMMATURE GRAN PERCENT AUTO 0.0 % (0.0-0.4); LYMPHOCYTES ABSOLUTE AUTO 1.32 K/uL (1.00-4.80); LYMPHOCYTES PERCENT AUTO 31.2 % (24.0-44.0); MEAN PLATELET VOLUME 8.9 fL (9.4-12.3); MONOCYTES ABSOLUTE AUTO 0.43 K/uL (0.00-0.80); MONOCYTES PERCENT AUTO 10.2 % (0.0-8.0); NEUTROPHILS ABSOLUTE AUTO 2.35 K/uL (1.80-7.70); NEUTROPHILS PERCENT AUTO 55.5 % (41.0-71.0); NRBC ABSOLUTE 0.00 K/uL (0.00-0.02); NRBC PERCENT 0.0 /100WBC (0.0-0.2); PLATELET COUNT,PLT 331 K/uL (150-400); RED BLOOD CELL COUNT 5.16 M/uL (4.10-5.30); WHITE BLOOD CELL COUNT,WBC 4.23 K/uL (3.9-11.3)
[2025-04-26 09:39] LABS: A/G RATIO 0.9 (0.9-1.6); ALANINE AMINOTRANSFERASE,ALT 475.0 IU/L (14-63); ASPARTATE AMNIOTRANSFERASE,AST 262.0 IU/L (15-37); BILIRUBIN TOTAL 0.5 mg/dL (0.2-1.0); BLOOD UREA NITROGEN,BUN 7.0 mg/dL (7.0-18.0); CARBON DIOXIDE,CO2 21.3 mmol/L (21.0-32.0); CHLORIDE,CL 101.0 mmol/L (98-107); CREATININE 0.7 mg/dL (0.6-1.0); EST CRCL DRUG DOSING (CG) 94.1 mL/min; ETHANOL BLOOD MEDICAL 32.0 mg/dL; GLUCOSE RANDOM 197.0 mg/dL (74-106); POTASSIUM,K 3.1 mmol/L (3.5-5.1); PROTEIN TOTAL,TP 6.4 g/dL (6.4-8.2); SODIUM,NA 138.0 mmol/L (136-145)
[2025-04-26 09:42] LABS: ESTIMATED GFR 113.0 mL/min (>60)
[2025-04-26] MEDS: PHENobarbitaL sodium 260 MG in Sodium Chloride 0.9% 100 ML IV ONE (09:42)
[2025-04-26 10:15] LABS: APPEARANCE,URINE CLEAR; GLUCOSE,URINE NEGATIVE (NEGATIVE); OCCULT BLOOD,URINE NEGATIVE (NEGATIVE)
[2025-04-26 10:24] LABS: AMPHETAMINES SCREEN, URINE NEGATIVE (CUTOFF=500); BUPRENORPHINE SCREEN,URINE NEGATIVE (CUTOFF=10); METHADONE SCREEN, URINE NEGATIVE (CUTOFF=200); METHAMPHETAMINES SCREEN, URINE NEGATIVE (CUTOFF=500); OXYCODONE SCREEN,URINE NEGATIVE (CUT0FF=100); PCP SCREEN,URINE NEGATIVE (CUTOFF=25); THC SCREEN,URINE 20 NG/ML NEGATIVE (CUTOFF=50)
[2025-04-26 10:28] LABS: EPITHELIAL CELLS,URINE FEW (NONE-FEW); YEAST,URINE OCCASIONAL
[2025-04-26] MEDS: Potassium Chloride 20 MEQ Tab.ER PO ONE (10:54)
[2025-04-26] MEDS: Magnesium Sulfate 2 GM/50 mL 2 GM in Premix Bag 1 BAG IV ONE (10:54)
[2025-04-26 13:19] VITALS: BP 123/83; PULSE 99
== END 2025-04-26 13:40 | disposition home or self-care (01) ==
LOC: MW.ED 08:31
DX: F10.139 Alcohol abuse with withdrawal, unspecified (principal); R74.01 Elevation of levels of liver transaminase levels; F17.200 Nicotine dependence, unspecified, uncomplicated; Y90.1 Blood alcohol level of 20-39 mg/100 ml; Z98.84 Bariatric surgery status; Z90.49 Acquired absence of other specified parts of digestive tract; Z79.899 Other long term (current) drug therapy; Z75.3 Unavailability and inaccessibility of health-care facilities
CPT/HCPCS: 36415; 80053; 80305; 80307; 81001; 83690; 83735; 84703; 85025; 96361; 96365; 96367; 99284; A9270; J2560; J3475; J7030